=== PATIENT | female | born 1970 | race American Indian/Alaskan Native ===

== ENCOUNTER 2021-07-07 11:16 | Emergency (ER) | payer SELFPAY ==
--- NOTE | 2021-07-07 13:39 | Emergency Department Report ---
<JO ANN ACOSTA A - Last Filed: 07/07/21 17:53> ED Abdominal Pain HPI - General Chief Complaint: Back Pain/Injury Stated Complaint: BODY PAINS PUI?: No Time Seen by Provider: 07/07/21 13:38 Source: patient Mode of arrival: Ambulatory Limitations: No Limitations - History of Present Illness Initial Comments: 50 yo AA comes to ER today via POV with severe r back pain- radiates to right flank and to paul area. Has noted some blood in her urine. Pt has a hx of a/c back pain. She has taken OTC meds at home with no relief. She states her back pain is usually not this bad. Yesterday she had been doing some yard work and it was after that she noticed the pain; however there was no trauma or strain while working in the yard. Denies N/V Denies fever or chills No chest pain or SOB Hx ovary removal many years ago; LMP over a year ago. No vag discharge or concern for STI No weight loss Pain kept her up last night but did not wake her from sleep. MD Complaint: flank pain -: Sudden, days(s) Location: R flank Radiation: suprapubic Quality: aching Consistency: constant - Related Data LMP (females 10-50): other Allergies Allergy/AdvReac Type Severity Reaction Status Date / Time No Known Allergies Allergy Unverified 07/07/21 13:36 ED Review of Systems Comment: All other systems reviewed and negative ED Past Medical Hx - Past Medical History Previous Medical History?: Yes Hx Asthma: Yes Additional medical history: chronic back pain - Surgical History Past Surgical History?: Yes Additional Surgical History: ovary removed - Family History Family history: no significant - Social History Smoking Status: Never Smoker Substance Use Type: None ED Physical Exam - General Limitations: No Limitations General appearance: alert, in no apparent distress - Head Head exam: Present: atraumatic, normocephalic - Eye Eye exam: Present: normal appearance - ENT ENT exam: Present: mucous membranes moist - Neck Neck exam: Present: normal inspection - Respiratory Respiratory exam: Present: normal lung sounds bilaterally. Absent: respiratory distress - Cardiovascular Cardiovascular Exam: Present: regular rate, normal rhythm. Absent: systolic murmur, diastolic murmur, rubs, gallop - GI/Abdominal GI/Abdominal exam: Present: soft, normal bowel sounds - Extremities Exam Extremities exam: Present: normal inspection - Back Exam Back exam: Present: normal inspection - Neurological Exam Neurological exam: Present: alert, oriented X3 - Psychiatric Psychiatric exam: Present: normal affect, normal mood - Skin Skin exam: Present: warm, dry, intact, normal color. Absent: rash ED Course - Reevaluation(s) Reevaluation #1: 07/07/21 17:30 EJ placed after several failed INT insertions. ED Medical Decision Making - Lab Data Result diagrams: 07/07/21 14:26 07/07/21 14:26 - Radiology Data Radiology results: image reviewed see report - Medical Decision Making Labs 07/07/21 07/07/21 07/07/21 14:26 14:26 Unknown WBC 5.7 RBC 4.39 Hgb 14.6 H Hct 40.8 MCV 93 MCH 33 H MCHC 36 H RDW 14.0 Plt Count 349 Lymph % (Auto) 48.7 H [place] % (Auto) 6.9 Eos % (Auto) 2.6 Baso % (Auto) 1.3 Lymph # (Auto) 2.8 [place] # (Auto) 0.4 Eos # (Auto) 0.1 Baso # (Auto) 0.1 Seg Neutrophils % 40.5 Seg Neutrophils # 2.3 Sodium 140 Potassium 4.8 Chloride 106.3 Carbon Dioxide 26 Anion Gap 13 BUN 6 L Creatinine 0.6 Estimated GFR > 60 BUN/Creatinine Ratio 10 Glucose 99 Calcium 9.5 Total Bilirubin 0.30 Direct Bilirubin < 0.2 Indirect Bilirubin 0.1 AST 15 ALT 13 Alkaline Phosphatase 90 Total Protein 7.4 Albumin 4.1 Albumin/Globulin Ratio 1.2 Lipase 43 Urine Color Yellow Urine Turbidity Clear Urine pH 6.0 Ur Specific [place] 1.010 Urine Protein <15 mg/dl Urine Glucose (UA) Neg Urine Ketones Neg Urine Blood Mod Urine Nitrite Neg Urine Bilirubin Neg Urine Urobilinogen < 2.0 Ur Leukocyte Esterase Neg Urine WBC (Auto) 1.0 Urine RBC (Auto) 7.0 U Epithel Cells (Auto) < 1.0 Urine Mucus Few VS normal as manually charted by RN labs noted ua noted- MOD RBC / 7 CELL COUNT; NO NITRATES/LEUKS CT ORDERED 1618 TO RO K STONES ns/toradol/zofran/dilaudid x 1 and rochephin given in ER [address] ISHAN ACOSTA TO [place] BASED ON CT FINDINGS. - Differential Diagnosis ro uti/pylo/k stone/cysitis VS A/C BACK PAIN EXACERBATION ED Disposition Clinical Impression: Back pain Qualifiers: Chronicity: acute Back pain laterality: right Hematuria Qualifiers: Hematuria type: unspecified type Qualified Code(s): R31.9 - Hematuria, unspecified Disposition: 01 HOME / SELF CARE / HOMELESS Is pt being admited?: No Does the pt Need Aspirin: No Condition: Stable Instructions: Acute Back Pain, Adult Additional Instructions: DIET TOLERATED STAY WELL HYDRATED MOTRIN OR TYLENOL FOR PAIN MED ORDERED TODAY FOLLOW UP WITH PCP - referral below FOLLOW UP WITH UROLOGY- referral below Referrals: PUNEET FRY MD [Staff Physician] - 3-5 Days RAEGAN MARQUEZ MD [Staff Physician] - 3-5 Days Time of Disposition: 17:40 <HYUN ACOSTA - Last Filed: 07/07/21 21:24> ED Review of Systems ROS: Stated complaint: BODY PAINS Other details as noted in HPI ED Medical Decision Making - Lab Data Result diagrams: 07/07/21 14:26 07/07/21 14:26 - Radiology Data [facility] [address] [place] [address] Cat Scan Report Signed Patient: PANCHO BIANCHI MR#: [id number] : 1970 Acct:[id number] Age/Sex: 50 / F ADM Date: 07/07/21 Loc: ED Attending Dr: Ordering Physician: JO ANN ACOSTA Date of Service: 07/07/21 Procedure(s): CT abdomen pelvis wo con Accession Number(s): [id number] cc: JO ANN ACOSTA CT ABDOMEN AND PELVIS WITHOUT CONTRAST INDICATION: flank pain CONTRAST: Without IV COMPARISON: None available. All CT scans at this location are performed using CT dose reduction for ALARA by means of automated exposure control. FINDINGS: Mild chronic changes are seen in the lung bases. Probable scarring is seen in the right lower lobe. No pneumoperitoneum is seen. No free fluid is noted. No lymphadenopathy is seen. No urinary tract calculi or evidence of obstruction are noted. No evidence of bowel obstruction is seen. No inflammatory changes are noted. Gallbladder and bile ducts appear within normal limits. Appendix appears within normal limits. Colonic diverticulosis is seen without evidence of diverticulitis. No masses are seen. No adnexal masses are noted. IMPRESSION: No acute abnormalities are seen Signer Name: Rafael Tripp MD Signed: 07/07/2021 7:03 PM Workstation Name: [id number] Transcribed By: GJ Dictated By: Rafael Tripp MD Electronically Authenticated By: Rafael Tripp MD Signed Date/Time: 07/07/211902 DD/ 00 TD/TT: Print Cancel - Medical Decision Making Patient has a negative CT scan. Critical care attestation.: If time is entered above; I have spent that time in minutes in the direct care of this critically ill patient, excluding procedure time.
[2021-07-07 14:58] LABS: Basophils # (Auto) 0.1 K/mm3 (0.0-0.1); Basophils % (Auto) 1.3 % (0.0-1.8); Eosinophils # (Auto) 0.1 K/mm3 (0.0-0.4); Eosinophils % (Auto) 2.6 % (0.0-4.3); Lymphocytes # (Auto) 2.8 K/mm3 (1.2-5.4); Lymphocytes % (Auto) 48.7 % (13.4-35.0); Mean Corpuscular HGB Conc 36 % (30-34); Mean Corpuscular Volume 93 fl (79-97); Monocytes # (Auto) 0.4 K/mm3 (0.0-0.8); Monocytes % (Auto) 6.9 % (0.0-7.3); Platelet Count 349 K/mm3 (140-440); Red Blood Count 4.39 M/mm3 (3.65-5.03)
[2021-07-07 15:02] LABS: Hematocrit 40.8 % (30.3-42.9); Hemoglobin 14.6 gm/dl (10.1-14.3)
[2021-07-07] MEDS ORDERED: SODIUM CHLORIDE 0.9% 1000 ML 1,000 ML IV ONE (15:03)
[2021-07-07 15:19] LABS: Alanine Aminotransferase 13 units/L (7-56); Albumin 4.1 g/dL (3.9-5); Blood Urea Nitrogen 6 mg/dL (7-17); Calcium 9.5 mg/dL (8.4-10.2); Hemolysis Index 2
[2021-07-07 15:44] LABS: Bilirubin,Urine NEG (Negative); Blood,Urine MOD (Negative); Color,Urine Yellow (Yellow); Mucus,Urine FEW /HPF; Protein,Urine <15 mg/dL mg/dL (Negative); Urobilinogen,Urine < 2.0 mg/dL (<2.0)
[2021-07-07 15:46] LABS: BUN/Creatinine Ratio 10; Bilirubin,Direct < 0.2 mg/dL (0-0.2)
[2021-07-07] MEDS ORDERED: ONDANSETRON 4 MG/2 ML INJ IV ONE (16:18)
[2021-07-07] MEDS ORDERED: KETOROLAC 30 MG/1 ML INJ IV ONE (16:18)
[2021-07-07] MEDS ORDERED: cefTRIAXone/NS 1 GM/50 ML 1 GM/50 ML BAG IV ONE (16:18)
[2021-07-07] MEDS ORDERED: HYDROmorphone 1 MG/1 ML INJ IV ONE (17:27)
--- NOTE | 2021-07-07 19:08 | Cat Scan Report ---
CT ABDOMEN AND PELVIS WITHOUT CONTRAST INDICATION: flank pain CONTRAST: Without IV COMPARISON: None available. All CT scans at this location are performed using CT dose reduction for ALARA by means of automated e xposure control. FINDINGS: Mild chronic changes are seen in the lung bases. Probable scarring is seen in the right low er lobe. No pneumoperitoneum is seen. No free fluid is noted. No lymphadenopathy is seen. No urinary tract calculi or evidence of obstruction are noted. No evidence of bowel obstruction is seen. No infl ammatory changes are noted. Gallbladder and bile ducts appear within normal limits. Appendix appears within normal limits. Colonic diverticulosis is seen without evidence of diverticulitis. No masses ar e seen. No adnexal masses are noted. IMPRESSION: No acute abnormalities are seen Signer Name: Rafael Tripp MD Signed: 07/07/2021 7:03 PM Workstation Name: [id number]
== END 2021-07-07 21:33 | disposition home or self-care (01) ==
LOC: ED 11:16
DX: M54.9 Dorsalgia, unspecified (principal); R10.30 Lower abdominal pain, unspecified; R31.9 Hematuria, unspecified; J45.909 Unspecified asthma, uncomplicated; G89.29 Other chronic pain
CPT/HCPCS: 36415; 74176; 80048; 80076; 81001; 83690; 85025; 96365; 96375; 99284; J0696; J1170; J2405; J7030

== ENCOUNTER 2022-05-08 10:15 | Emergency (ER) | payer SELFPAY ==
[2022-05-08 10:37] VITALS: BP 167/97
--- NOTE | 2022-05-08 11:16 | Emergency Department Report ---
ED General Adult HPI - General Chief complaint: Upper Respiratory Infection Stated complaint: FACE PAIN/CHILLS Time Seen by Provider: 05/08/22 11:10 Source: patient Mode of arrival: Ambulatory Limitations: No Limitations - History of Present Illness Initial comments: 51-year-old female with past medical history of asthma and frequent sinus infection. Reports to the ER complains of sinus pressure for about 3 days. Patient reports OTC medications not helping. Patient reports a history of sinus surgeries. Patient reports last sinus infection was one year ago. No other acute symptoms reported at this time. - Related Data Previous Rx's Medication Instructions Recorded Last Taken Type Amoxicillin/K Clav Tab [Augmentin 1 tab PO Q12HR 7 Days #14 tab 05/08/22 Unknown Rx 875 mg] Allergies Allergy/AdvReac Type Severity Reaction Status Date / Time No Known Allergies Allergy Unverified 07/07/21 13:36 ED Review of Systems ROS: Stated complaint: FACE PAIN/CHILLS Other details as noted in HPI Constitutional: denies: chills, fever Eyes: denies: eye pain, eye discharge, vision change ENT: congestion, other (Sinus pressure and pain). denies: ear pain, throat pain Respiratory: denies: cough, shortness of breath, wheezing Cardiovascular: denies: chest pain, palpitations Endocrine: no symptoms reported Gastrointestinal: denies: abdominal pain, nausea, diarrhea Genitourinary: denies: urgency, dysuria, discharge Musculoskeletal: denies: back pain, joint swelling, arthralgia Skin: denies: rash, lesions Neurological: denies: headache, weakness, paresthesias Psychiatric: denies: anxiety, depression Hematological/Lymphatic: denies: easy bleeding, easy bruising ED Past Medical Hx - Past Medical History Previous Medical History?: Yes Hx Asthma: Yes Additional medical history: chronic back pain, frequent sinus infections - Surgical History Additional Surgical History: ovary removed - Social History Smoking Status: Never Smoker - Medications Home Medications: Home Medications Medication Instructions Recorded Confirmed Last Taken Type Amoxicillin/K Clav Tab [Augmentin 1 tab PO Q12HR 7 Days #14 tab 05/08/22 Unknown Rx 875 mg] ED Physical Exam - General Limitations: No Limitations General appearance: alert, in no apparent distress - Head Head exam: Present: atraumatic, normocephalic - Eye Eye exam: Present: normal appearance - ENT ENT exam: Present: mucous membranes moist, other (Tenderness on palpation to the frontal and maxillary sinuses. Pressure reported by patient as well.) - Neck Neck exam: Present: normal inspection - Respiratory Respiratory exam: Present: normal lung sounds bilaterally. Absent: respiratory distress - Cardiovascular Cardiovascular Exam: Present: regular rate, normal rhythm. Absent: systolic murmur, diastolic murmur, rubs, gallop - GI/Abdominal GI/Abdominal exam: Present: soft, normal bowel sounds - Extremities Exam Extremities exam: Present: normal inspection - Back Exam Back exam: Present: normal inspection - Neurological Exam Neurological exam: Present: alert, oriented X3 - Psychiatric Psychiatric exam: Present: normal affect, normal mood - Skin Skin exam: Present: warm, dry, intact, normal color. Absent: rash ED Course Vital Signs 05/08/22 10:34 Temperature 98.3 F Pulse Rate 72 Respiratory 18 Rate Blood Pressure 167/97 O2 Sat by Pulse 100 Oximetry ED Medical Decision Making - Medical Decision Making 51-year-old female reports to the ER complains of sinus pressure for about 3 days. Patient reports OTC medications not helping. Patient reports a history of sinus surgeries. Patient reports last sinus infection was one year ago. On physical exam. There is frontal and maxillary sinus tenderness and pressure noted. Postnasal drip. Patient will be discharged home with Augmentin for 7 days. Patient will follow her primary care provider. Patient agrees with plan of care and verbalized understanding. Patient informed that if symptoms get worse to report back to the ER. Critical care attestation.: If time is entered above; I have spent that time in minutes in the direct care of this critically ill patient, excluding procedure time. ED Disposition Clinical Impression: Acute bacterial sinusitis Disposition: HOME / SELF CARE / HOMELESS Is pt being admited?: No Condition: Stable Instructions: Sinusitis, Adult, [id number], Antibiotic Medicine, Adult Prescriptions: Amoxicillin/K Clav Tab [Augmentin 875 mg] 1 tab PO Q12HR 7 Days #14 tab Time of Disposition: 11:14
== END 2022-05-08 19:37 | disposition home or self-care (01) ==
LOC: ED 10:15
DX: J01.80 Other acute sinusitis (principal); B96.89 Other specified bacterial agents as the cause of diseases classified elsewhere; J45.909 Unspecified asthma, uncomplicated
CPT/HCPCS: 99282